=== PATIENT | male | born 1990 | race Caucasian/White ===

== ENCOUNTER 2017-03-03 03:35 | Inpatient (IN) | payer BC ==
[~2017-03-03] VITALS: Ht 190.5 cm; Wt 132.3 kg
[2017-03-03 04:22] LABS: HEMATOCRIT 40.9 % (38.0-50.0); MCH 31.3 PG (29.0-34.0); MCHC 34.2 G/DL (30.0-36.0); MCV 91.5 FL (86-99); MEAN PLAT.VOLUME 9.4 uM^3 (9.0-12.4); PLATELET COUNT 213 K/uL (156-360); RBC DIS.WIDTH-CV 12.7 % (11.8-14.6); RBC DIS.WIDTH-SD 42.1 % (39-53); RED BLOOD COUNT 4.47 M/uL (4.00-5.50); WHITE BLOOD COUNT 11.5 K/uL (4.1-10.2)
[2017-03-03 04:34] LABS: CHLORIDE 106 mEq/L (99-109); SODIUM 138 mEq/L (136-147)
[2017-03-03 04:36] LABS: GLUCOSE 113 mg/dL (70-99)
[2017-03-03 04:37] LABS: ANION GAP 9 MEQ/L (2-14)
[2017-03-03 04:38] LABS: TOTAL BILIRUBIN 0.8 mg/dL (0.0-1.0)
[2017-03-03 04:39] LABS: ALKALINE PHOSPHATASE 103 IU/L (3-129)
[2017-03-03 04:40] LABS: GFR ESTIMATE (CALCULATED) > 59 mL/min/
[2017-03-03 04:41] LABS: UREA NITROGEN (BUN) 19 mg/dL (9-23)
[2017-03-03 04:43] LABS: LIPASE 19 U/L (1.0-51.0)
[2017-03-03 06:00] LABS: ADD MIUA? NO; BILIRUBIN NEGATIVE; BLOOD NEGATIVE; COLOR YELLOW ((YELLOW)); GLUCOSE (STRIP) NEGATIVE; KETONES NEGATIVE; LEUKOCYTES NEGATIVE; NITRITE NEGATIVE; PROTEIN (STRIP) NEGATIVE; SPECIFIC GRAVITY 1.021 (1.000-1.030); UCUL ADDED? NO; UROBILINOGEN 0.2 MG/DL (0.2-1.0)
[2017-03-03] MEDS ORDERED: NORCO 5/3251 TABLET PO (06:13)
[2017-03-03] MEDS ORDERED: DOXYCYCLINE HY100 MG PO (06:13)
[2017-03-03] MEDS ORDERED: ZOFRAN8 MG PO (06:13)
[2017-03-03] MEDS ORDERED: MULTIVITAMIN1 EAC2 PO (08:49)
[2017-03-03 12:12] VITALS: BP 127/63
[2017-03-03 13:57] LABS: CHLAMYDIA TRACHOMATIS NEGATIVE; NEISSERIA GONORRHOEAE NEGATIVE
[2017-03-03 15:00] VITALS: BP 102/59
[2017-03-03 19:27] VITALS: BP 119/58
[2017-03-04 00:20] VITALS: BP 120/76
[2017-03-04 06:46] LABS: HEMATOCRIT 35.7 % (38.0-50.0); MCH 32.5 PG (29.0-34.0); MCHC 34.5 G/DL (30.0-36.0); MCV 94.2 FL (86-99); MEAN PLAT.VOLUME 10.2 uM^3 (9.0-12.4); PLATELET COUNT 192 K/uL (156-360); RBC DIS.WIDTH-CV 13.1 % (11.8-14.6); RBC DIS.WIDTH-SD 44.6 % (39-53); RED BLOOD COUNT 3.79 M/uL (4.00-5.50); WHITE BLOOD COUNT 9.1 K/uL (4.1-10.2)
[2017-03-04 06:57] LABS: ANION GAP 7 MEQ/L (2-14); CHLORIDE 105 MEQ/L (99-109); GFR ESTIMATE (CALCULATED) > 59 mL/min/; GLUCOSE 115 mg/dL (70-99); POTASSIUM 3.7 MEQ/L (3.7-5.4); SAMPLE HEMOLYSIS CHECK 0; SAMPLE ICTERIC CHECK 0; SAMPLE LIPEMIA CHECK 0; SODIUM 139 MEQ/L (136-147); UREA NITROGEN (BUN) 10 mg/dL (9-23)
[2017-03-04 08:49] VITALS: BP 113/62
[2017-03-04 15:00] VITALS: BP 117/64
[2017-03-04 20:00] VITALS: BP 114/70
[2017-03-04 23:16] VITALS: BP 125/65
[2017-03-05 03:15] VITALS: BP 120/72
[2017-03-05 07:45] VITALS: BP 132/61
[2017-03-05 17:29] VITALS: BP 128/70
[2017-03-06 00:35] VITALS: BP 120/69
[2017-03-06 06:20] LABS: HEMATOCRIT 40.4 % (38.0-50.0); MCH 30.7 PG (29.0-34.0); MCHC 32.9 G/DL (30.0-36.0); MCV 93.3 FL (86-99); MEAN PLAT.VOLUME 9.7 uM^3 (9.0-12.4); RBC DIS.WIDTH-CV 12.7 % (11.8-14.6); RBC DIS.WIDTH-SD 43.9 % (39-53); RED BLOOD COUNT 4.33 M/uL (4.00-5.50); WHITE BLOOD COUNT 7.1 K/uL (4.1-10.2)
[2017-03-06 06:22] LABS: PLATELET COUNT 250 K/uL (156-360)
[2017-03-06 07:50] VITALS: BP 114/56
[2017-03-06 15:55] VITALS: BP 134/72
[2017-03-06 23:32] VITALS: BP 114/59
[2017-03-07 06:36] LABS: HEMATOCRIT 40.2 % (38.0-50.0); MCH 30.5 PG (29.0-34.0); MCHC 33.1 G/DL (30.0-36.0); MCV 92.2 FL (86-99); MEAN PLAT.VOLUME 9.6 uM^3 (9.0-12.4); PLATELET COUNT 264 K/uL (156-360); RBC DIS.WIDTH-CV 12.4 % (11.8-14.6); RBC DIS.WIDTH-SD 42.4 % (39-53); RED BLOOD COUNT 4.36 M/uL (4.00-5.50); WHITE BLOOD COUNT 7.9 K/uL (4.1-10.2)
[2017-03-07 07:34] VITALS: BP 108/59
[2017-03-07 15:59] VITALS: BP 134/79
[2017-03-08 00:22] VITALS: BP 117/66
[2017-03-08 06:35] LABS: HEMATOCRIT 40.9 % (38.0-50.0); MCHC 33.3 G/DL (30.0-36.0); MCV 93.2 FL (86-99); MEAN PLAT.VOLUME 9.3 uM^3 (9.0-12.4); PLATELET COUNT 274 K/uL (156-360); RBC DIS.WIDTH-CV 12.3 % (11.8-14.6); RBC DIS.WIDTH-SD 42.5 % (39-53); RED BLOOD COUNT 4.39 M/uL (4.00-5.50); WHITE BLOOD COUNT 7.9 K/uL (4.1-10.2)
[2017-03-08 07:56] VITALS: BP 120/72
[2017-03-08 16:04] VITALS: BP 125/59
[2017-03-08 23:41] VITALS: BP 140/69
[2017-03-09 04:00] VITALS: BP 138/74
[2017-03-09 06:29] LABS: HEMATOCRIT 39.6 % (38.0-50.0); MCH 31.6 PG (29.0-34.0); MCHC 34.1 G/DL (30.0-36.0); MCV 92.7 FL (86-99); MEAN PLAT.VOLUME 9.4 uM^3 (9.0-12.4); PLATELET COUNT 275 K/uL (156-360); RBC DIS.WIDTH-CV 12.4 % (11.8-14.6); RBC DIS.WIDTH-SD 42.5 % (39-53); RED BLOOD COUNT 4.27 M/uL (4.00-5.50); WHITE BLOOD COUNT 7.5 K/uL (4.1-10.2)
[2017-03-09 09:00] VITALS: BP 119/63
[2017-03-09 15:02] VITALS: BP 121/62
[2017-03-09 17:07] VITALS: BP 120/70
[2017-03-10 00:09] VITALS: BP 122/65
[2017-03-10 05:53] LABS: HEMATOCRIT 41.6 % (38.0-50.0); MCH 30.6 PG (29.0-34.0); MCHC 33.2 G/DL (30.0-36.0); MCV 92.2 FL (86-99); MEAN PLAT.VOLUME 9.3 uM^3 (9.0-12.4); PLATELET COUNT 321 K/uL (156-360); RBC DIS.WIDTH-CV 12.2 % (11.8-14.6); RBC DIS.WIDTH-SD 41.5 % (39-53); RED BLOOD COUNT 4.51 M/uL (4.00-5.50); WHITE BLOOD COUNT 6.7 K/uL (4.1-10.2)
[2017-03-10 07:46] VITALS: BP 127/61
[2017-03-10] MEDS ORDERED: FLAGYL500 MG PO (10:01)
[2017-03-10] MEDS ORDERED: CIPRO500 MG PO (10:01)
[2017-03-10] MEDS ORDERED: ZOFRAN ODT4 MG PO (10:02)
[2017-03-10] MEDS ORDERED: NORCO 5/3251 TABLET PO (10:09)
[2017-03-10 15:30] VITALS: BP 121/69
== END 2017-03-10 16:52 | disposition home or self-care (01) | DRG 728 ==
LOC: EME 03:35 → 5EAST 09:07 → EDOF 09:07 → ENRESERV 09:10 → 5EAST 10:37
PROVIDERS: Emergency Medicine; Surgery
DX: N45.2 Orchitis (principal); K57.20 Diverticulitis of large intestine with perforation and abscess without bleeding; F12.90 Cannabis use, unspecified, uncomplicated; Z83.3 Family history of diabetes mellitus
CPT/HCPCS: 74177; 76870; 80048; 80053; 81003; 83690; 85027; 87491; 87591; 99281; 99285; J0696; J1644; J2270; J2405; J2543; J3480; J7030; J7050; S0030

== ENCOUNTER 2017-03-27 18:24 | Inpatient (IN) | payer BC ==
[~2017-03-27] VITALS: Ht 190.5 cm; Wt 118.1 kg
[~2017-03-27 18:24] MED LIST: CIPRO500 MG PO; DOXYCYCLINE HY100 MG PO; FLAGYL500 MG PO; MULTIVITAMIN1 EAC2 PO; NORCO 5/3251 TABLET PO; ZOFRAN ODT4 MG PO; ZOFRAN8 MG PO
[2017-03-27 19:55] LABS: HEMATOCRIT 39.1 % (38.0-50.0); MCH 31.4 PG (29.0-34.0); MCV 92.4 FL (86-99); RBC DIS.WIDTH-CV 12.7 % (11.8-14.6); RBC DIS.WIDTH-SD 43.2 % (39-53); RED BLOOD COUNT 4.23 M/uL (4.00-5.50); WHITE BLOOD COUNT 10.2 K/uL (4.1-10.2)
[2017-03-27 20:01] LABS: CHLORIDE 110 mEq/L (99-109); POTASSIUM 3.9 mEq/L (3.7-5.4); SODIUM 141 mEq/L (136-147)
[2017-03-27 20:03] LABS: GLUCOSE 100 mg/dL (70-99)
[2017-03-27 20:05] LABS: ANION GAP 9 MEQ/L (2-14); TOTAL BILIRUBIN 0.8 mg/dL (0.0-1.0)
[2017-03-27 20:07] LABS: ALKALINE PHOSPHATASE 74 IU/L (3-129); GFR ESTIMATE (CALCULATED) > 59 mL/min/
[2017-03-27 20:08] LABS: UREA NITROGEN (BUN) 8 mg/dL (9-23)
[2017-03-27 20:10] LABS: LIPASE 18 U/L (1.0-51.0)
[2017-03-27 20:21] LABS: ADD MIUA? YES; BILIRUBIN NEGATIVE; BLOOD NEGATIVE; COLOR AMBER ((YELLOW)); GLUCOSE (STRIP) NEGATIVE; KETONES NEGATIVE; LEUKOCYTES NEGATIVE; NITRITE NEGATIVE; PROTEIN (STRIP) 30; SPECIFIC GRAVITY 1.029 (1.000-1.030); UROBILINOGEN 0.2 MG/DL (0.2-1.0)
[2017-03-27 20:44] LABS: MEAN PLAT.VOLUME 9.9 uM^3 (9.0-12.4); PLAT.SUFFICIENCY ADEQUATE; PLATELET COUNT 223 K/uL (156-360)
[2017-03-27 20:47] LABS: AMORPHOUS URATES CRYSTALS 4+; BACTERIA NONE SEEN /HPF; CASTS NONE SEEN /LPF; CRYSTALS PRESENT; EPITHELIAL CELLS NONE SEEN /HPF; MUCUS 1+ /LPF; RED BLOOD CELLS NONE SEEN /HPF (0-5); WHITE BLOOD CELLS NONE SEEN /HPF (0-5)
[2017-03-27] MEDS ORDERED: EXCEDRIN EXTRA1 EACH PO (21:40)
[2017-03-27 22:42] VITALS: BP 118/68
[2017-03-28] VITALS (7 sets, daily range): BP systolic 93–116; BP diastolic 50–65
[2017-03-28 07:11] LABS: EOSINOPHIL (%) 0.7 % (0-5); HEMATOCRIT 37.5 % (38.0-50.0); IMMATURE GRANULOCYTE (%) 0.2 % (0.0-0.7); INSTRUMENT ABS NEUTROPHIL CT 4.2 K/uL; LYMPHOCYTE COUNT 1.2 K/uL (1.0-2.8); MCH 32.2 PG (29.0-34.0); MCHC 34.1 G/DL (30.0-36.0); MCV 94.2 FL (86-99); MEAN PLAT.VOLUME 10.3 uM^3 (9.0-12.4); MONOCYTE (%) 9.6 % (3-12); MONOCYTE COUNT 0.6 K/uL (0-0.8); NEUTROPHIL (%) 69.2 % (45-76); NEUTROPHIL COUNT 4.2 K/uL (1.8-6.4); PLATELET COUNT 192 K/uL (156-360); RBC DIS.WIDTH-CV 12.8 % (11.8-14.6); RBC DIS.WIDTH-SD 44.1 % (39-53); RED BLOOD COUNT 3.98 M/uL (4.00-5.50); WHITE BLOOD COUNT 6.1 K/uL (4.1-10.2)
[2017-03-28 07:35] LABS: ANION GAP 6 MEQ/L (2-14); CHLORIDE 109 MEQ/L (99-109); GFR ESTIMATE (CALCULATED) > 59 mL/min/; GLUCOSE 107 mg/dL (70-99); POTASSIUM 3.9 MEQ/L (3.7-5.4); SAMPLE HEMOLYSIS CHECK 0; SAMPLE ICTERIC CHECK 0; SAMPLE LIPEMIA CHECK 0; SODIUM 141 MEQ/L (136-147); UREA NITROGEN (BUN) 8 mg/dL (9-23)
[2017-03-29 04:25] VITALS: BP 99/49
[2017-03-29 07:19] VITALS: BP 101/57
[2017-03-29 11:28] VITALS: BP 119/72
[2017-03-29 15:25] VITALS: BP 118/77
[2017-03-29 19:36] VITALS: BP 128/76
[2017-03-30 00:15] VITALS: BP 132/74
[2017-03-30 04:30] VITALS: BP 106/56
[2017-03-30 06:09] LABS: HEMATOCRIT 37.6 % (38.0-50.0); MCH 31.8 PG (29.0-34.0); MCV 93.3 FL (86-99); MEAN PLAT.VOLUME 10.3 uM^3 (9.0-12.4); PLATELET COUNT 200 K/uL (156-360); RBC DIS.WIDTH-CV 12.4 % (11.8-14.6); RBC DIS.WIDTH-SD 42.5 % (39-53); RED BLOOD COUNT 4.03 M/uL (4.00-5.50); WHITE BLOOD COUNT 3.8 K/uL (4.1-10.2)
[2017-03-30 07:25] VITALS: BP 135/75
[2017-03-30 10:40] VITALS: BP 126/64
[2017-03-30 15:33] VITALS: BP 121/75
[2017-03-30] MEDS ORDERED: FLAGYL500 MG PO (17:30)
[2017-03-30] MEDS ORDERED: LEVAQUIN750 MG PO (17:30)
== END 2017-03-30 17:53 | disposition home or self-care (01) | DRG 392 ==
LOC: EME 18:24 → EDOF 21:30 → 2EAST 21:30 → ENRESERV 21:31 → 2EAST 22:18
PROVIDERS: Nurse Practitioner Family; Surgery
DX: K57.20 Diverticulitis of large intestine with perforation and abscess without bleeding (principal); Z68.32 Body mass index [BMI] 32.0-32.9, adult
CPT/HCPCS: 74177; 80048; 80053; 81003; 83605; 83690; 85025; 85027; 87040; 99281; 99285; J0744; J1650; J1885; J1956; J2270; J2405; J7030; J7042; S0030

== ENCOUNTER → 2017-05-07 | Outpatient (CLI) | payer BC ==
[~2017-05-07] VITALS: Ht 190.5 cm; Wt 113.4 kg
[~2017-05-07] MED LIST changes: +EXCEDRIN EXTRA1 EACH PO; +LEVAQUIN750 MG PO
== END | disposition home or self-care (01) ==
LOC: AMB 12:06
PROC: 0DJD8ZZ Inspection of Lower Intestinal Tract, Via Natural or Artificial Opening Endoscopic (ICD-10-PCS; principal; 2017-05-07)
DX: K52.9 Noninfective gastroenteritis and colitis, unspecified (principal); K57.30 Diverticulosis of large intestine without perforation or abscess without bleeding; R59.0 Localized enlarged lymph nodes; Z83.79 Family history of other diseases of the digestive system

== ENCOUNTER 2017-05-26 21:12 | Inpatient (IN) | payer BC ==
[~2017-05-26] VITALS: Ht 190.5 cm; Wt 127.0 kg
[2017-05-27 07:40] VITALS: BP 125/75
[2017-05-27 08:12] LABS: HEMATOCRIT 46.8 % (38.0-50.0); MCHC 34.4 G/DL (30.0-36.0); MEAN PLAT.VOLUME 9.6 uM^3 (9.0-12.4); PLATELET COUNT 224 K/uL (156-360); RBC DIS.WIDTH-CV 13.1 % (11.8-14.6); RBC DIS.WIDTH-SD 44.6 % (39-53); RED BLOOD COUNT 5.03 M/uL (4.00-5.50); WHITE BLOOD COUNT 5.9 K/uL (4.1-10.2)
[2017-05-27 08:36] LABS: ALKALINE PHOSPHATASE 85 IU/L (3-129); ANION GAP 9 MEQ/L (2-14); CHLORIDE 105 MEQ/L (99-109); GFR ESTIMATE (CALCULATED) > 59 mL/min/; GLUCOSE 91 mg/dL (70-99); POTASSIUM 3.8 MEQ/L (3.7-5.4); SAMPLE HEMOLYSIS CHECK 0; SAMPLE ICTERIC CHECK 0; SAMPLE LIPEMIA CHECK 0; SODIUM 142 MEQ/L (136-147); TOTAL BILIRUBIN 0.9 MG/DL (0.0-1.0); UREA NITROGEN (BUN) 11 mg/dL (9-23)
[2017-05-27 16:12] LABS: HEMATOCRIT 43.1 % (38.0-50.0); MCH 32.2 PG (29.0-34.0); MCHC 33.9 G/DL (30.0-36.0); MCV 95.1 FL (86-99); MEAN PLAT.VOLUME 9.7 uM^3 (9.0-12.4); PLATELET COUNT 205 K/uL (156-360); RBC DIS.WIDTH-CV 13.2 % (11.8-14.6); RBC DIS.WIDTH-SD 46.5 % (39-53); RED BLOOD COUNT 4.53 M/uL (4.00-5.50)
[2017-05-27 16:35] LABS: ANION GAP 9 MEQ/L (2-14); CHLORIDE 105 MEQ/L (99-109); GFR ESTIMATE (CALCULATED) > 59 mL/min/; SAMPLE HEMOLYSIS CHECK 0; SAMPLE ICTERIC CHECK 0; SAMPLE LIPEMIA CHECK 0; SODIUM 140 MEQ/L (136-147); UREA NITROGEN (BUN) 10 mg/dL (9-23)
[2017-05-27 16:36] LABS: GLUCOSE 120 mg/dL (70-99)
[2017-05-27 18:25] VITALS: BP 138/81
[2017-05-27 19:46] VITALS: BP 126/73
[2017-05-27 23:30] VITALS: BP 127/69
[2017-05-28 04:03] VITALS: BP 133/83
[2017-05-28 07:27] LABS: MCH 31.3 PG (29.0-34.0); MCHC 33.3 G/DL (30.0-36.0); MEAN PLAT.VOLUME 9.7 uM^3 (9.0-12.4); PLATELET COUNT 198 K/uL (156-360); RBC DIS.WIDTH-CV 13.1 % (11.8-14.6); RBC DIS.WIDTH-SD 44.9 % (39-53); RED BLOOD COUNT 4.15 M/uL (4.00-5.50); WHITE BLOOD COUNT 7.2 K/uL (4.1-10.2)
[2017-05-28 07:50] VITALS: BP 136/79
[2017-05-28 07:56] LABS: ANION GAP 6 MEQ/L (2-14); CHLORIDE 105 MEQ/L (99-109); GFR ESTIMATE (CALCULATED) > 59 mL/min/; POTASSIUM 3.8 MEQ/L (3.7-5.4); SAMPLE HEMOLYSIS CHECK 0; SAMPLE ICTERIC CHECK 0; SAMPLE LIPEMIA CHECK 0; SODIUM 140 MEQ/L (136-147); UREA NITROGEN (BUN) 8 mg/dL (9-23)
[2017-05-28 07:58] LABS: GLUCOSE 88 mg/dL (70-99)
[2017-05-28 12:30] VITALS: BP 130/87
[2017-05-28 16:06] VITALS: BP 143/88
[2017-05-28 19:48] VITALS: BP 135/79
[2017-05-28 23:47] VITALS: BP 129/83
[2017-05-29 03:47] VITALS: BP 140/91
[2017-05-29 06:08] LABS: HEMATOCRIT 40.2 % (38.0-50.0); MCH 31.2 PG (29.0-34.0); MCHC 33.3 G/DL (30.0-36.0); MCV 93.5 FL (86-99); MEAN PLAT.VOLUME 9.4 uM^3 (9.0-12.4); PLATELET COUNT 208 K/uL (156-360); RBC DIS.WIDTH-CV 12.7 % (11.8-14.6); RBC DIS.WIDTH-SD 44.2 % (39-53); WHITE BLOOD COUNT 6.6 K/uL (4.1-10.2)
[2017-05-29 06:33] LABS: ANION GAP 8 MEQ/L (2-14); CHLORIDE 101 MEQ/L (99-109); GFR ESTIMATE (CALCULATED) > 59 mL/min/; GLUCOSE 81 mg/dL (70-99); SAMPLE HEMOLYSIS CHECK 0; SAMPLE ICTERIC CHECK 0; SAMPLE LIPEMIA CHECK 0; SODIUM 137 MEQ/L (136-147); UREA NITROGEN (BUN) 7 mg/dL (9-23)
[2017-05-29 08:45] VITALS: BP 135/88
[2017-05-29] MEDS ORDERED: PERCOCET 5/31 TABLET PO (09:59)
[2017-05-29] MEDS ORDERED: COLACE100 MG PO (09:59)
[2017-05-29 16:30] VITALS: BP 140/67
[2017-05-29 23:38] VITALS: BP 128/75
[2017-05-30] MEDS ORDERED: NORCO 5/3251 TABLET PO (13:07)
== END 2017-05-30 15:42 | disposition home or self-care (01) | DRG 331 ==
LOC: 2SOUTH → ENRESERV 21:12 → 2SOUTH 05-27 07:19 → 3EAST 05-27 07:19 → 2SOUTH 05-27 08:43 → SDC 05-27 13:57 → 2SOUTH 05-27 15:01 → EDSTATUS 05-27 15:03 → 2SOUTH 05-27 15:04 → ENRESERV 05-27 15:09 → 2SOUTH 05-27 15:57 → 3EAST 05-27 17:39
PROVIDERS: Surgery
PROC: 0DJD8ZZ Inspection of Lower Intestinal Tract, Via Natural or Artificial Opening Endoscopic (ICD-10-PCS; principal; 2017-05-27)
PROC: 0DTN4ZZ Resection of Sigmoid Colon, Percutaneous Endoscopic Approach (ICD-10-PCS; principal; 2017-05-27)
PROC: 0T778DZ Dilation of Left Ureter with Intraluminal Device, Via Natural or Artificial Opening Endoscopic (ICD-10-PCS; 2017-05-27)
DX: K57.32 Diverticulitis of large intestine without perforation or abscess without bleeding (principal); G43.909 Migraine, unspecified, not intractable, without status migrainosus; Z79.82 Long term (current) use of aspirin
CPT/HCPCS: 80048; 80048 91; 80053; 85027; 86850; 86900; 86901; 87070; 87075; 87076; 87077; 87186; 87205; 88305; 88307; 94799; C1758; C1769; J1170; J1650; J1885; J2001; J2250; J2270; J2405; J2710; J2765; J2795; J3010; J3475; J7120; P9045; S0030; S0074